=== PATIENT | male | born 1965 | race Caucasian/White ===

== ENCOUNTER 2019-02-08 06:34 | Day surgery (SDC) | payer BC ==
[2019-02-04 16:33] VITALS: BMI 23.4
[2019-02-08] MEDS ORDERED: LIDOCAINE 1%-EPI 1:100,000 30 ML MDV IJ ONE (07:23)
[2019-02-08] MEDS ORDERED: GENTAMICIN SO4 80 MG/2 ML VIAL ONE (07:23)
[2019-02-08] MEDS ORDERED: VANCOMYCIN 1,000 MG VIAL (RESTRICTED TO ID ONLY) ONE ×2 (07:24→08:46)
[2019-02-08] MEDS ORDERED: THROMBIN (BOVINE) 20,000 UNIT VIAL TP ONE (07:24)
[2019-02-08] MEDS ORDERED: BUPIVACAINE HCL/PF 0.5% (5MG/ML) 10 ML VIAL ONE (07:24)
--- NOTE | 2019-02-08 07:40 | HP ---
Admitting History and Physical - Primary Care Physician PCP: Kwabena Falcon - Admission Chief Complaint: Low back pain History of Present Illness: 53 yo male with PMHx as noted below. Sent to [facility] for further evaluation of his chronic lowb back pain (left side) from Dr. Falcon's office (PCP). Pain started around 2017. The patient states he has seen multiple Orthopedic Surgeons for trigger point injections. No identifiable source as to what was initially causing the pain. Denies any trauma/fall. Attempted PT without success. 2018 patient was referred to Dr. Valverde (Studio Owner/Pain Management). Treated with TRUDY whithout any relief. MRI of lumbar region demonstrates mild lumbar degenerative spondylosis w/ small osteophytes, disc bulge and hypertrophic facets and ligamentum flavum. Mild degenerative changes at L34, L45, L5S1. No mass/lesion identified. Incidental finding of Prostate mass which has since been biopsied by Dr. Sierra ( Urology) --> negative cancer. Because of patient's continued c/o LBP (left side) without an identifiable source, Dr. Cui feels this may be a fibrofatty lesion in the sacroiliac region which may be the cause. History Source: Patient, Medical Record Limitations to Obtaining History: No Limitations - Past Medical History Musculoskeletal: Yes: Chronic low back pain - Past Surgical History Past Surgical History: Yes: Appendectomy Additional Past Surgical History: Left knee surgery - Smoking History Smoking history: Current every day smoker Have you smoked in the past 12 months: Yes Aproximately how many cigarettes per day: 4 - Alcohol/Substance Use Hx Alcohol Use: No History of Substance Use: reports: None - Social History ADL: Independent History of Recent Travel: No Home Medications - Allergies Allergies/Adverse Reactions: Allergies Allergy/AdvReac Type Severity Reaction Status Date / Time pseudoephedrine AdvReac Intermediate Verified 02/04/19 16:44 - Home Medications Home Medications: Ambulatory Orders Acetaminophen [Tylenol] 650 mg PO PRN PRN 02/04/19 Diazepam [Valium] 5 mg PO HS 02/04/19 Fenofibrate,Micronized [Fenofibrate] 134 mg PO DAILY 02/04/19 Fexofenadine HCl [Payal Allergy] 1 tab PO PRN 02/08/19 Family Disease History - Family Disease History Family History: Denies Review of Systems - Review of Systems Constitutional: reports: No Symptoms Eyes: reports: No Symptoms HENT: reports: No Symptoms Neck: reports: No Symptoms Cardiovascular: reports: No Symptoms Respiratory: reports: No Symptoms Gastrointestinal: reports: No Symptoms Genitourinary: reports: No Symptoms Musculoskeletal: reports: Back Pain (see hpi) Integumentary: reports: No Symptoms Neurological: reports: No Symptoms Endocrine: reports: No Symptoms Hematology/Lymphatic: reports: No Symptoms Psychiatric: reports: No Symptoms Physical Examination Vital Signs: Vital Signs Temperature 98.1 F 02/08/19 07:12 Pulse Rate 90 02/08/19 07:12 Respiratory Rate 18 02/08/19 07:12 Blood Pressure 136/89 02/08/19 07:12 O2 Sat by Pulse Oximetry (%) 98 02/08/19 07:23 Constitutional: Yes: Well Nourished, No Distress, Calm Eyes: Yes: WNL, Conjunctiva Clear, EOM Intact HENT: Yes: WNL, Atraumatic, Normocephalic Neck: Yes: WNL, Supple, Trachea Midline Cardiovascular: Yes: WNL, Regular Rate and Rhythm Respiratory: Yes: WNL, Regular, CTA Bilaterally Gastrointestinal: Yes: WNL, Normal Bowel Sounds, Soft Renal/: Yes: WNL Musculoskeletal: Yes: Back Pain Extremities: Yes: WNL Edema: No Peripheral Pulses WNL: Yes Peripheral Pulses: Left Radial: 2+, Right Radial: 2+, Left Doralis Pedis: 2+, Right Dorsalis Pedis: 2+, Left Femoral: 2+, Right Femoral: 2+ Neurological: Yes: WNL, Alert, Oriented ...Motor Strength: WNL Psychiatric: Yes: WNL, Alert, Oriented Imaging - Results MRI: Report Reviewed Problem List - Problems (1) Low back pain Code(s): M54.5 - LOW BACK PAIN Assessment/Plan NPO IVF DVT PPX Smoking Cessation Informed Consent Pain management Type and Screen Plan for DC home later today after meets ASU criteria Above plan discussed with Dr. Cui and agrees
[2019-02-08] MEDS ORDERED: ROCURONIUM BROMIDE 50 MG/5 ML SYRINGE ONE (08:06)
[2019-02-08] MEDS ORDERED: PROPOFOL 20 ML ONE ×2 (08:06)
[2019-02-08] MEDS ORDERED: MIDAZOLAM HCL 2 MG/2 ML SINGLE DOSE VIAL ONE (08:06)
[2019-02-08] MEDS ORDERED: LIDOCAINE HCL/PF 2% SDV 5ML VIAL ONE (08:07)
[2019-02-08] MEDS ORDERED: PROMETHAZINE HCL 25 MG/1 ML VIAL IVPUSH PRN (08:11)
[2019-02-08] MEDS ORDERED: ONDANSETRON 4 MG/2 ML VIAL IVPUSH PRN (08:11)
[2019-02-08] MEDS ORDERED: oxyCODONE HCL 5 MG TABLET PO PRN (08:11)
[2019-02-08] MEDS ORDERED: LACTATED RINGERS SOLUTION 1,000 ML IV SCH (08:15)
[2019-02-08] MEDS ORDERED: SODIUM CHLORIDE 0.9% P/F 10 ML VIAL IJ ONE ×2 (08:43→08:46)
[2019-02-08] MEDS ORDERED: ceFAZolin SODIUM 1 GM VIAL ONE (08:43)
[2019-02-08] MEDS ORDERED: ceFAZolin SODIUM 1 GM VIAL IVPB ONE (08:43)
[2019-02-08] MEDS ORDERED: VANCOMYCIN 1,000 MG VIAL (RESTRICTED TO ID ONLY) IVPB ONE (08:45)
[2019-02-08] MEDS ORDERED: DEXAMETHASONE SOD PHOSPHATE 4 MG/1 ML VIAL ONE (08:50)
[2019-02-08] MEDS ORDERED: BUPIVACAINE LIPOSOME/PF (EXPAREL) 266 MG/20 ML VIAL ONE (09:09)
[2019-02-08] MEDS ORDERED: GENTAMICIN SO4 80 MG/2 ML VIAL IVPB ONE (09:19)
[2019-02-08] MEDS ORDERED: BACITRACIN 50,000 UNITS VIAL NR ONE (09:19)
[2019-02-08] MEDS ORDERED: THROMBIN (BOVINE) 5,000 UNIT VIAL TP ONE (09:26)
[2019-02-08] MEDS ORDERED: BUPIVACAINE HCL/PF 0.5% (5 MG/ML) 30 ML VIAL IJ ONE (09:26)
[2019-02-08] MEDS ORDERED: BUPIVACAINE LIPOSOME/PF (EXPAREL) 266 MG/20 ML VIAL NR ONE (09:27)
[2019-02-08] MEDS ORDERED: KETOROLAC TROMETHAMINE 30 MG/1 ML VIAL ONE (10:04)
[2019-02-08] MEDS ORDERED: GLYCOPYRROLATE 0.2 MG/1 ML VIAL ONE (10:05)
[2019-02-08] MEDS ORDERED: NEOSTIGMINE METHYLSULFATE 0.5 MG/1 ML - 10 ML MDV ONE ×2 (10:05)
[2019-02-08] MEDS ORDERED: MEPERIDINE HCL 25 MG/ML VIAL ONE (10:53)
[2019-02-08] MEDS ORDERED: MEPERIDINE HCL 25 MG/ML VIAL IVPUSH ONE ×2 (10:55→10:56)
--- NOTE | 2019-02-08 11:59 | OP ---
Operative Note - Note: Operative Date: 02/08/19 Pre-Operative Diagnosis: Low back pain (left side) Operation: Open exploration/resection of episacral soft tissue/lipoma and cluneal nerve (medial) decompression Post-Operative Diagnosis: Same as Pre-op Surgeon: Yovani Cui Supervisor Beam Department: Bob Hdz Anesthesiologist/HEAD CAGER: Isaías An Anesthesia: General, Local Specimens Removed: episacral soft tissue Estimated Blood Loss (mls): 5 Fluid Volume Replaced (mls): 500 Operative Report Dictated: Yes
--- NOTE | 2019-02-08 12:00 | SURG ---
Surgery Tafe Teacher Note Tafe Teacher: Bob Hdz PA-C Date of Service: 02/08/19 Diagnosis: Chronic low back pain (left side) Procedure: Open exploration/resection of episacral soft tissue/lipoma and cluneal nerve ( medial) decompression I was present for the entirety of the operative procedure. For further detail, please refer to operative report. Visit type - Case Type Case Type: Scheduled - New patient This patient is new to me today: Yes Date on this admission: 02/08/19
[2019-02-08] MEDS ORDERED: oxyCODONE HCL 5 MG TABLET ONE (12:04)
[2019-02-08] MEDS ORDERED: oxyCODONE HCL 5 MG TABLET PO ONE (12:05)
[2019-02-08 16:33] VITALS: BP 124/89; PULSE 79; TEMP 97.7
--- NOTE | 2019-02-09 17:56 | PATH ---
Surgical Pathology Report Patient Name: DARIANA RYAN [facility]. Rec. #: [id number] /Age/Gender: 1965 (Age: 53) / M Account: [id number] Location: AMBULATORY SURG Taken: 02/08/2019 Received: 02/08/2019 Reported: 02/09/2019 Physicians: Yovani Hess M.D. Specimen(s) Received EPISACRAL LIPOMA Clinical History Episacral Lipoma Final Diagnosis EPISACRAL LIPOMA, RESECTION: MATURE FIBROADIPOSE TISSUE CONSISTENT WITH EPISACRAL LIPOMA. Electronically Signed Kaylie Grayson M.D. Gross Description Received in formalin labeled "episacral lipoma," is a 4.0 x 3.0 x 0.6 cm aggregate of yellow, lobulated adipose tissue. Sectioning reveals homogeneous yellow, smooth fat. Systems Support Officer sections are submitted in one cassette. /02/08/2019 saudi02/08/2019
== END 2019-02-08 16:25 | disposition home or self-care (01) ==
LOC: JASUSAT 06:34 → EDSTATUS 08:00 → JASUSAT 16:25
PROVIDERS: ATTEND Neurological Surgery
PROC: 01NB0ZZ Release Lumbar Nerve, Open Approach (ICD-10-PCS; 2019-02-08)
PROC: 0HX6XZZ Transfer Back Skin, External Approach (ICD-10-PCS; 2019-02-08)
PROC: 0JB70ZZ Excision of Back Subcutaneous Tissue and Fascia, Open Approach (ICD-10-PCS; principal; 2019-02-08 08:00)
DX: D17.79 Benign lipomatous neoplasm of other sites (principal); G58.8 Other specified mononeuropathies
CPT/HCPCS: 86850; 86900; 86901; 88304-TC; 94760

== ENCOUNTER 2019-06-23 06:34 | Inpatient (IN) | payer BC ==
[2019-06-22 16:21] VITALS: BMI 22.8
[2019-06-23] MEDS ORDERED: CEFAZOLIN 2 GM in DEXTROSE 5%-WATER - 100 ML IVPB ONE (07:10)
[2019-06-23] MEDS ORDERED: MIDAZOLAM HCL 2 MG/2 ML SINGLE DOSE VIAL ONE (07:16)
[2019-06-23] MEDS ORDERED: ROCURONIUM BROMIDE 50 MG/5 ML SYRINGE ONE (07:19)
[2019-06-23] MEDS ORDERED: KETOROLAC TROMETHAMINE 30 MG/1 ML VIAL ONE (07:20)
[2019-06-23] MEDS ORDERED: ONDANSETRON 4 MG/2 ML VIAL ONE ×3 (07:20→10:18)
[2019-06-23] MEDS ORDERED: DEXAMETHASONE SOD PHOSPHATE 4 MG/1 ML VIAL ONE (07:20)
[2019-06-23] MEDS ORDERED: SODIUM CHLORIDE 0.9% P/F 10 ML VIAL IJ ONE (07:20)
[2019-06-23] MEDS ORDERED: LIDOCAINE HCL 2% 100 MG/5 ML DISP.SYRIN ONE (07:22)
[2019-06-23] MEDS ORDERED: DESFLURANE GAS 240 ML BOTTLE IH ONE (07:23)
[2019-06-23] MEDS ORDERED: GENTAMICIN SO4 80 MG/2 ML VIAL ONE (07:30)
[2019-06-23] MEDS ORDERED: BUPIVACAINE HCL/PF 0.5% (5 MG/ML) 30 ML VIAL IJ ONE ×2 (07:31→09:11)
[2019-06-23] MEDS ORDERED: VANCOMYCIN 1,000 MG VIAL (RESTRICTED TO ID ONLY) ONE ×2 (07:31→08:30)
[2019-06-23] MEDS ORDERED: THROMBIN (BOVINE) 20,000 UNIT VIAL TP ONE (07:31)
[2019-06-23] MEDS ORDERED: LIDOCAINE 1%-EPI 1:100,000 30 ML MDV IJ ONE (07:43)
[2019-06-23] MEDS ORDERED: BUPIVACAINE LIPOSOME/PF (EXPAREL) 266 MG/20 ML VIAL ONE (07:44)
[2019-06-23] MEDS ORDERED: ONDANSETRON 4 MG/2 ML VIAL IVPUSH PRN (07:51)
[2019-06-23] MEDS ORDERED: LACTATED RINGERS SOLUTION 1,000 ML IV SCH (08:00)
[2019-06-23] MEDS ORDERED: LIDOCAINE 1%/EPI 1:100000 (20 ML MULTI DOSE VIAL) IJ ONE (08:10)
[2019-06-23] MEDS ORDERED: VANCOMYCIN 1,000 MG VIAL (RESTRICTED TO ID ONLY) IVPB ONE (08:30)
[2019-06-23] MEDS ORDERED: ceFAZolin SODIUM 1 GM VIAL IVPB ONE (08:30)
[2019-06-23] MEDS ORDERED: PROPOFOL 20 ML ONE (08:30)
[2019-06-23] MEDS ORDERED: GENTAMICIN SO4 80 MG/2 ML VIAL IVPB ONE (09:04)
[2019-06-23] MEDS ORDERED: BACITRACIN 50,000 UNITS VIAL TP ONE (09:04)
[2019-06-23] MEDS ORDERED: BUPIVACAINE LIPOSOME/PF (EXPAREL) 266 MG/20 ML VIAL NR ONE (09:11)
[2019-06-23] MEDS ORDERED: ACETAMINOPHEN INJECTION 100 ML IVPB ONE (09:35)
--- NOTE | 2019-06-23 09:39 | OP ---
Operative Note - Note: Operative Date: 06/23/19 Pre-Operative Diagnosis: Episacral lipoma, cluneal nerve compression Operation: Excision of episacral lipoma and decompression of cluneal nerve ( mircoscope) Post-Operative Diagnosis: Same as Pre-op Surgeon: Yovani Cui General Maintenance Mechanic: Bob Hdz Anesthesiologist/PRIMING MIXTURE CARRIER: Renzo Ontiveros Anesthesia: General Specimens Removed: Episacral lipoma Estimated Blood Loss (mls): 5 Drains, Volume Out (mls): 25 (villanueva/clear) Fluid Volume Replaced (mls): 150 Operative Report Dictated: Yes
[2019-06-23] MEDS ORDERED: ACETAMINOPHEN 1000 MG/100 ML VIAL (NON FORMULARY) IVPB ONE ×2 (09:40→10:00)
--- NOTE | 2019-06-23 09:40 | HP ---
History & Physical Update - History History: No Change - Physical Physical: No Change - Assessment Assessment: No Change - Plan Plan: No Change
[2019-06-23] MEDS ORDERED: FAMOTIDINE 20 MG/50 ML IVPB 20 MG/50 ML MG IVPB ONE (09:50)
[2019-06-23] MEDS ORDERED: FAMOTIDINE 20 MG PREMIXED IVPB IVPB ONE (10:00)
[2019-06-23] MEDS ORDERED: ONDANSETRON 4 MG/2 ML VIAL IVPUSH ONE (10:25)
[2019-06-23] MEDS ORDERED: oxyCODONE HCL 5 MG TABLET PO PRN ×2 (12:33)
[2019-06-23] MEDS ORDERED: oxyCODONE HCL 5 MG TABLET ONE (12:37)
--- NOTE | 2019-06-23 15:25 | SURG ---
Surgery Bed Bug Exterminator Note Bed Bug Exterminator: Bob Hdz PA-C Date of Service: 06/23/19 Diagnosis: Episacral lipoma, cluneal nerve compression Procedure: Excision of episacral lipoma and decompression of cluneal nerve (mircoscope) I was present for the entirety of the operative procedure. For further detail, please refer to operative report. Visit type - Case Type Case Type: Scheduled - New patient This patient is new to me today: Yes Date on this admission: 06/23/19
[2019-06-23 17:05] VITALS: PULSE 78; TEMP 97.8
[2019-06-23 17:36] VITALS: BP 120/70
--- NOTE | 2019-06-27 16:20 | PATH ---
Surgical Pathology Report Patient Name: DARIANA RYAN [facility]. Rec. #: [id number] /Age/Gender: 1965 (Age: 54) / M Account: [id number] Location: [facility] Taken: 06/23/2019 Received: 06/23/2019 Reported: 06/27/2019 Physicians: Yovani Hess M.D. Specimen(s) Received EPISACRAL Clinical History Episacral lipoma Final Diagnosis EPISACRAL LIPOMA, EXCISION: MATURE FIBROADIPOSE TISSUE COMPATIBLE WITH LIPOMA. Electronically Signed Kaylie Grayson M.D. Gross Description Received in formalin labeled "episacral lipoma," is a 4.3 x 3.8 x 1.0 cm aggregate of yellow, lobulated adipose tissue. Sectioning reveals homogeneous yellow, smooth fat. No areas of hemorrhage or necrosis are identified. Lemon Picker sections are submitted in one cassette. /06/24/2019 saudi06/24/2019
== END 2019-06-23 14:30 | disposition home or self-care (01) | DRG 578 ==
LOC: JSAMEDAYSX 06:34
PROVIDERS: ADMIT Neurological Surgery; ATTEND Neurological Surgery
PROC: 0JX70ZB Transfer Back Subcutaneous Tissue and Fascia with Skin and Subcutaneous Tissue, Open Approach (ICD-10-PCS; 2019-06-23)
PROC: 01NR0ZZ Release Sacral Nerve, Open Approach (ICD-10-PCS; 2019-06-23)
PROC: 0JB70ZZ Excision of Back Subcutaneous Tissue and Fascia, Open Approach (ICD-10-PCS; principal; 2019-06-23 08:00)
DX: D17.79 Benign lipomatous neoplasm of other sites (principal)
CPT/HCPCS: 86850; 86900; 86901; 88304-TC; 94760; J0131

== ENCOUNTER 2022-12-30 04:29 | Day surgery (SDC) | payer BC ==
[2022-12-26 13:24] VITALS: BMI 25.0
[2022-12-30] MEDS ORDERED: MIDAZOLAM HCL 2 MG/2 ML SINGLE DOSE VIAL ONE ×3 (13:09→14:09)
[2022-12-30] MEDS ORDERED: DEXMEDETOMIDINE HCL 200 MCG/2 ML IVPB ONE (13:25)
[2022-12-30] MEDS ORDERED: LIDOCAINE HCL/PF 2% SDV 5ML VIAL ONE ×3 (13:32→13:42)
[2022-12-30] MEDS ORDERED: PROPOFOL 20 ML ONE ×2 (13:39→14:22)
[2022-12-30] MEDS ORDERED: ceFAZolin SODIUM 1 GM VIAL ONE (13:54)
[2022-12-30] MEDS ORDERED: DEXAMETHASONE SOD PHOSPHATE 4 MG/1 ML VIAL ONE (13:55)
[2022-12-30] MEDS ORDERED: ceFAZolin 2 GRAM PREMIX BAG IVPB ONE (13:57)
[2022-12-30] MEDS ORDERED: LIDOCAINE HCL/PF 2% SDV 5ML VIAL INF ONE (13:59)
[2022-12-30] MEDS ORDERED: LIDOCAINE HCL 1% PRESERVATIVE FREE - 30ML VIAL IJ ONE (13:59)
[2022-12-30] MEDS ORDERED: KETOROLAC TROMETHAMINE 30 MG/1 ML VIAL ONE (14:41)
[2022-12-30] MEDS ORDERED: ONDANSETRON 4 MG/2 ML VIAL ONE (14:41)
[2022-12-30] MEDS ORDERED: ONDANSETRON 4 MG/2 ML VIAL IVPUSH PRN (15:30)
[2022-12-30] MEDS ORDERED: LACTATED RINGERS SOLUTION 1,000 ML IV SCH (15:30)
[2022-12-30] MEDS ORDERED: PROMETHAZINE HCL 25 MG/1 ML VIAL IVPB PRN (15:30)
[2022-12-30] MEDS ORDERED: oxyCODONE HCL 5 MG TABLET PO PRN ×2 (15:30)
[2022-12-30] MEDS ORDERED: ACETAMINOPHEN 1000 MG/100 ML BAG IVPB ONE (15:31)
[2022-12-30] MEDS ORDERED: HYDROmorphone HCl 2 MG/ML VIAL IVPUSH PRN (15:31)
[2022-12-30] MEDS ORDERED: oxyCODONE HCL 5 MG TABLET ONE (17:27)
[2022-12-30 17:43] VITALS: RESP 18
[2022-12-30 18:33] VITALS: BP 116/80; PULSE 73; TEMP 97.3
[2022-12-30] MEDS ORDERED: ACETAMINOPHEN 500 MG TABLET (FP) PO PRN (20:27)
== END 2022-12-30 18:37 | disposition home or self-care (01) ==
LOC: JASU-SURG 04:29
PROVIDERS: ATTEND Pain Medicine Pain Medicine
PROC: 00HU3MZ Insertion of Neurostimulator Lead into Spinal Canal, Percutaneous Approach (ICD-10-PCS; principal; 2022-12-30 12:45)
DX: G89.4 Chronic pain syndrome (principal); R10.2 Pelvic and perineal pain
CPT/HCPCS: 63650; C1897; 76000-TC-FY; 94760; C1889

== ENCOUNTER 2023-02-17 03:49 | Day surgery (SDC) | payer BC ==
[2023-02-13 11:55] VITALS: BMI 26.4
[2023-02-17] MEDS ORDERED: LIDOCAINE HCL/PF 1% SDV 5ML VIAL ONE (07:06)
[2023-02-17] MEDS ORDERED: GENTAMICIN SO4 80 MG/2 ML VIAL ONE (07:14)
[2023-02-17] MEDS ORDERED: VANCOMYCIN 1,000 MG VIAL (RESTRICTED TO ID ONLY) ONE ×2 (07:14→08:39)
[2023-02-17] MEDS ORDERED: THROMBIN (BOVINE) 5,000 UNIT VIAL TP ONE ×2 (07:14→08:25)
[2023-02-17] MEDS ORDERED: BUPIVACAINE LIPOSOME/PF (EXPAREL) 266 MG/20 ML VIAL ONE (07:15)
[2023-02-17] MEDS ORDERED: BUPIVACAINE HCL/PF 0.5% (5MG/ML) 10 ML VIAL ONE (07:15)
[2023-02-17] MEDS ORDERED: LIDOCAINE 1%/EPI 1:100000 (20 ML MULTI DOSE VIAL) IJ ONE ×3 (07:34→09:55)
[2023-02-17] MEDS ORDERED: ceFAZolin SODIUM 1 GM VIAL IVPB ONE ×2 (07:34→08:40)
[2023-02-17] MEDS ORDERED: VANCOMYCIN 1 GM in D5W (PRE-DOCKED) 1,000 MG/250 ML (RESTRICTED TO ID ONLY IVPB ONE ×2 (07:35→08:44)
[2023-02-17] MEDS ORDERED: PROPOFOL 40 ML ONE ×2 (07:58→08:02)
[2023-02-17] MEDS ORDERED: MIDAZOLAM HCL 2 MG/2 ML SINGLE DOSE VIAL ONE (07:58)
[2023-02-17] MEDS ORDERED: ceFAZolin SODIUM 1 GM VIAL ONE (08:00)
[2023-02-17] MEDS ORDERED: SODIUM CHLORIDE 0.9% P/F 10 ML VIAL IJ ONE ×2 (08:00→08:39)
[2023-02-17] MEDS ORDERED: LIDOCAINE HCL/PF 2% SDV 5ML VIAL ONE (08:00)
[2023-02-17] MEDS ORDERED: ONDANSETRON 4 MG/2 ML VIAL IVPUSH PRN (08:23)
[2023-02-17] MEDS ORDERED: PROMETHAZINE HCL 25 MG/1 ML VIAL IVPB PRN (08:23)
[2023-02-17] MEDS ORDERED: oxyCODONE HCL 5 MG TABLET PO PRN (08:23)
[2023-02-17] MEDS ORDERED: GENTAMICIN SO4 80 MG/2 ML VIAL IVPB ONE (08:26)
[2023-02-17] MEDS ORDERED: LIDOCAINE HCL/PF 2% SDV 5ML VIAL INF ONE (08:26)
[2023-02-17] MEDS ORDERED: HYDROGEN PEROXIDE 473 ML PO ONE (08:26)
[2023-02-17] MEDS ORDERED: LACTATED RINGERS SOLUTION 1,000 ML IV SCH (08:30)
[2023-02-17] MEDS ORDERED: DEXAMETHASONE SOD PHOSPHATE 4 MG/1 ML VIAL ONE (08:43)
[2023-02-17] MEDS ORDERED: PROPOFOL 20 ML ONE (09:55)
[2023-02-17] MEDS ORDERED: ACETAMINOPHEN 1000 MG/100 ML BAG IVPB ONE (10:15)
[2023-02-17] MEDS ORDERED: ACETAMINOPHEN INJECTION 100 ML IVPB ONE (10:17)
[2023-02-17] MEDS ORDERED: oxyCODONE HCL 5 MG TABLET ONE (11:33)
[2023-02-17] MEDS ORDERED: ONDANSETRON 4 MG/2 ML VIAL ONE (11:33)
[2023-02-17 13:49] VITALS: BP 137/78; PULSE 96; RESP 16; TEMP 97.7
== END 2023-02-17 13:05 | disposition home or self-care (01) ==
LOC: JASU-SURG 03:49
PROVIDERS: ATTEND Neurological Surgery
PROC: 00HV0MZ Insertion of Neurostimulator Lead into Spinal Cord, Open Approach (ICD-10-PCS; 2023-02-17)
PROC: 0JH70DZ Insertion of Multiple Array Stimulator Generator into Back Subcutaneous Tissue and Fascia, Open Approach (ICD-10-PCS; principal; 2023-02-17 08:00)
DX: Z53.8 Procedure and treatment not carried out for other reasons (principal); R10.2 Pelvic and perineal pain; G89.29 Other chronic pain
CPT/HCPCS: 63685; C1767; C1778; 76000-TC-FY; 94760

== ENCOUNTER 2024-01-04 14:09 | Emergency (ER) | payer BC ==
[2024-01-04 14:26] VITALS: BP 116/79; PULSE 97; RESP 19; TEMP 97.9; BMI 25.8
[2024-01-04] MEDS ORDERED: HYDROmorphone HCL CARPU-JECT 2 MG/1 ML DISP.SYRIN ONE (16:42)
[2024-01-04] MEDS: HYDROmorphone HCl 2 MG/ML VIAL IVPB ONE (16:50)
[2024-01-04] MEDS ORDERED: HYDROmorphone HCL 2 MG TABLET ONE (19:03)
[2024-01-04] MEDS ORDERED: ONDANSETRON 4 MG/2 ML VIAL ONE (19:04)
[2024-01-04] MEDS: ONDANSETRON 4 MG/2 ML VIAL IVPUSH ONE (19:07)
[2024-01-04] MEDS: HYDROmorphone HCL 2 MG TABLET PO ONE (19:07)
== END 2024-01-04 19:22 | disposition home or self-care (01) ==
LOC: JER 14:09
PROC: 3E033GC Introduction of Other Therapeutic Substance into Peripheral Vein, Percutaneous Approach (ICD-10-PCS; principal; 2024-01-04)
PROC: 3E033NZ Introduction of Analgesics, Hypnotics, Sedatives into Peripheral Vein, Percutaneous Approach (ICD-10-PCS; 2024-01-04)
DX: G62.9 Polyneuropathy, unspecified (principal); N50.89 Other specified disorders of the male genital organs
CPT/HCPCS: 99284-25

== ENCOUNTER 2024-03-25 14:20 | Emergency (ER) | payer BC ==
[2024-03-25 14:48] VITALS: TEMP 98.7; BMI 25.8
[2024-03-25] MEDS ORDERED: HYDROmorphone HCL CARPU-JECT 2 MG/1 ML DISP.SYRIN ONE (17:13)
[2024-03-25] MEDS: HYDROmorphone HCl 2 MG/ML VIAL IVPUSH ONE (17:19)
[2024-03-25 19:02] VITALS: BP 136/80; PULSE 83; RESP 14
== END 2024-03-25 19:08 | disposition home or self-care (01) ==
LOC: JERFT 14:20 → JER 14:20
PROC: 3E033NZ Introduction of Analgesics, Hypnotics, Sedatives into Peripheral Vein, Percutaneous Approach (ICD-10-PCS; principal; 2024-03-25)
DX: G90.59 Complex regional pain syndrome I of other specified site (principal)
CPT/HCPCS: 99284-25